=== PATIENT | male | born 1965 ===

== ENCOUNTER → 2019-08-24 | Emergency (ER) | payer OTHER ==
[~2019-08-24] VITALS: Ht 167.6 cm; Wt 89.8 kg
== END | disposition home or self-care (01) ==
LOC: ER 18:08
DX: T62.8X4A Toxic effect of other specified noxious substances eaten as food, undetermined, initial encounter (principal); E86.0 Dehydration; R11.2 Nausea with vomiting, unspecified; Y92.89 Other specified places as the place of occurrence of the external cause

== ENCOUNTER 2019-08-25 17:54 | Emergency (ER) | payer OTHER ==
[~2019-08-25] VITALS: Ht 167.6 cm; Wt 89.8 kg
== END 2019-08-25 21:38 | disposition home or self-care (01) ==
LOC: ER 17:54
DX: R42 Dizziness and giddiness (principal)